=== PATIENT | male | born 1970 | race Caucasian/White ===

== ENCOUNTER 2017-11-26 08:03 | Day surgery (SDC) | payer OTHER ==
[2017-11-26] MEDS ORDERED: PROPOFOL 40 ML (10:11)
[2017-11-26] MEDS ORDERED: MIDAZOLAM 1 MG/ML 2 ML INJ (10:12)
== END 2017-11-26 14:43 | disposition home or self-care (01) ==
LOC: GIL 08:03
DX: Z12.11 Encounter for screening for malignant neoplasm of colon (principal); D12.5 Benign neoplasm of sigmoid colon; K57.90 Diverticulosis of intestine, part unspecified, without perforation or abscess without bleeding; K64.8 Other hemorrhoids
CPT/HCPCS: 45380; 88305